=== PATIENT | female | born 1970 | race Caucasian/White ===

== ENCOUNTER 2017-04-06 12:28 | Emergency (ER) | payer BC ==
[~2017-04-06] VITALS: Ht 160 cm; Wt 59.0 kg
[~2017-04-06 12:28] MED LIST: CLONIDINE PO
--- NOTE | 2017-04-06 13:41 | NUR ---
DR MEJIA AT THE BEDSIDE FOR EVAL AND EXAM.
--- NOTE | 2017-04-06 14:11 | NUR ---
Patient discharged to home in stable conditon. Written and verbal after care instructions given by DR trujillo. Patient verbalizes understanding of instructions.
== END 2017-04-06 14:15 | disposition home or self-care (01) ==
LOC: ER 12:30
DX: M54.12 Radiculopathy, cervical region (principal)
CPT/HCPCS: A4663

== ENCOUNTER 2017-06-02 20:09 | Emergency (ER) | payer BC ==
[~2017-06-02] VITALS: Ht 162.6 cm; Wt 56.7 kg
[2017-06-02] MEDS ORDERED: MORPHINE SULFATE 2 MG/1 ML DISP.SYRIN IV ONE (21:32)
[2017-06-02] MEDS ORDERED: ONDANSETRON IV *ER 4 MG/2 ML VIAL IV ONE (21:45)
[2017-06-02] MEDS ORDERED: IV NS 1000 ML 1,000 ML IV ONE (21:45)
[2017-06-02 21:55] LABS: BASOPHILS # (AUTO) 0.2 K/uL (0.0-8.0); BASOPHILS % (AUTO) 1.7 % (0.0-2.0); EOSINOPHILS % (AUTO) 0.3 % (0.0-7.0); HEMATOCRIT 42.5 % (37-47); HEMOGLOBIN 14.3 G/DL (12.0-16.0); LYMPHOCYTES # (AUTO) 1.5 K/UL (0.8-4.8); LYMPHOCYTES % (AUTO) 11.4 % (20.5-51.5); MEAN CORPUSCULAR HEMOGLOBIN 29.8 UUG (27.0-31.0); MEAN CORPUSCULAR HGB CONC 34 g/dL (32.0-37.0); MONOCYTES # (AUTO) 0.8 K/UL (0.1-1.30); MONOCYTES % (AUTO) 6.5 % (0.0-11.0); NEUTROPHILS # (AUTO) 10.4 K/UL (1.8-8.9); NEUTROPHILS % (AUTO) 80.1 % (38.5-71.5); PLATELET COUNT (AUTO) 361 K/UL (150-450); RED BLOOD CELL COUNT(AUTO) 4.78 MIL/UL (4.2-5.4); WHITE BLOOD COUNT (AUTO) 12.9 K/UL (4.0-11.2)
[2017-06-02 21:59] LABS: CREATININE 0.8 mg/dL (0.6-1.3); POTASSIUM 3.9 mmol/L (3.5-5.1)
[2017-06-02 22:05] LABS: BILIRUBIN,TOTAL 0.4 mg/dL (0.2-1.0); TOTAL PROTEIN, SERUM 7.5 g/dL (6.4-8.2)
[2017-06-02] MEDS ORDERED: MORPHINE SULFATE 10 MG/1 ML DISP.SYRIN ONE (22:06)
[2017-06-02] MEDS ORDERED: ONDANSETRON 4 MG/2 ML VIAL ONE (22:06)
--- NOTE | 2017-06-03 01:50 | NUR ---
Patient discharged to home in stable conditon. Written and verbal after care instructions given. Patient verbalizes understanding of instructions.
== END 2017-06-03 01:50 | disposition home or self-care (01) ==
LOC: ER 20:10
DX: G89.18 Other acute postprocedural pain (principal); M54.2 Cervicalgia; D72.829 Elevated white blood cell count, unspecified; M54.5 Low back pain; R13.10 Dysphagia, unspecified; M48.02 Spinal stenosis, cervical region
CPT/HCPCS: 36415; 70360; 72125; 72131; 80053; 82550; 84484; 84703; 85025; 93005; 96361; 96374; 96375; 99285; A4663; J2270; J2405; J7030; 70030-TC

== ENCOUNTER 2017-11-04 18:22 | Inpatient (IN) | payer BC, OTHER ==
[~2017-11-04] VITALS: Ht 162.6 cm; Wt 53.5 kg
[2017-11-04] MEDS ORDERED: AMOX-430 PO (18:36)
[2017-11-04] MEDS ORDERED: BENZ-13 PO (18:36)
[2017-11-04] MEDS ORDERED: OMEP20TA20 PO (18:37)
[2017-11-04] MEDS ORDERED: ALBUTEROL SULFATE 2.5 MG/3 ML NEBU NEB ONE (19:45)
[2017-11-04] MEDS ORDERED: IPRATROPIUM BROMIDE 0.5 MG/2.5 ML NEBU NEB ONE (19:45)
[2017-11-04 19:52] LABS: BASOPHILS # (AUTO) 0.1 K/uL (0.0-8.0); BASOPHILS % (AUTO) 0.9 % (0.0-2.0); EOSINOPHILS # (AUTO) 0.3 K/uL (0.0-0.7); EOSINOPHILS % (AUTO) 2.4 % (0.0-7.0); HEMATOCRIT 44.5 % (31.2-41.9); HEMOGLOBIN 14.9 g/dL (10.9-14.3); LYMPHOCYTES # (AUTO) 2.3 K/uL (20.0-40.0); LYMPHOCYTES % (AUTO) 19.7 % (20.5-51.5); MEAN CORPUSCULAR HEMOGLOBIN 29.9 uug (24.7-32.8); MEAN CORPUSCULAR HGB CONC 33 g/dL (32.3-35.6); MEAN CORPUSCULAR VOLUME 89.5 fL (75.5-95.3); MONOCYTES # (AUTO) 0.9 K/uL (2.0-10.0); MONOCYTES % (AUTO) 7.6 % (0.0-11.0); NEUTROPHILS % (AUTO) 69.4 % (38.5-71.5); PLATELET COUNT (AUTO) 278 K/uL (179-408); RED BLOOD CELL COUNT(AUTO) 4.97 MIL/uL (3.63-4.92); WHITE BLOOD COUNT (AUTO) 11.5 K/uL (3.8-11.8)
[2017-11-04] MEDS ORDERED: ALBUTEROL SULFATE 2.5 MG/3 ML NEBU ONE (20:07)
[2017-11-04] MEDS ORDERED: IPRATROPIUM BROMIDE 0.5 MG/2.5 ML NEBU ONE (20:08)
[2017-11-04 20:18] LABS: CREATININE 0.8 mg/dL (0.6-1.3); POTASSIUM 3.6 mmol/L (3.5-5.1)
[2017-11-04 20:33] LABS: BILIRUBIN,DIRECT 0.1 mg/dL (0.0-0.2); BILIRUBIN,TOTAL 0.4 mg/dL (0.2-1.0); TOTAL PROTEIN, SERUM 7.5 g/dL (6.4-8.2)
[2017-11-04] MEDS ORDERED: OXYCODONE/APAP 5-325 MG TABLET PO PRN (23:00)
[2017-11-04] MEDS ORDERED: ALBUTEROL SULFATE 2.5 MG/3 ML NEBU NEB PRN (23:00)
[2017-11-04] MEDS ORDERED: IPRATROPIUM BROMIDE 0.5 MG/2.5 ML NEBU NEB PRN (23:00)
[2017-11-04] MEDS ORDERED: MAGNESIUM HYDROXIDE 30 ML LIQUID UDC PO PRN (23:00)
[2017-11-04] MEDS ORDERED: ONDANSETRON 4 MG/2 ML VIAL IV PRN (23:00)
[2017-11-04] MEDS ORDERED: CEFTRIAXONE 1 G in IV DEXTROSE 5% 50 ML IV SCH (23:15)
[2017-11-05] VITALS: BP 102/55
[2017-11-05] MEDS ORDERED: CEFTRIAXONE 1 G VIAL ONE (00:28)
[2017-11-05] MEDS ORDERED: AZITHROMYCIN 500 MG VIAL IV ONE (00:28)
[2017-11-05] MEDS: AZITHROMYCIN IV 500 MG in IV DEXTROSE 5% 250 ML IV SCH (02:01)
[2017-11-05 04:00] VITALS: BP 105/61
[2017-11-05 05:45] LABS: BASOPHILS # (AUTO) 0.1 K/uL (0.0-8.0); EOSINOPHILS # (AUTO) 0.2 K/uL (0.0-0.7); EOSINOPHILS % (AUTO) 1.5 % (0.0-7.0); HEMATOCRIT 39.1 % (31.2-41.9); HEMOGLOBIN 13.4 g/dL (10.9-14.3); LYMPHOCYTES # (AUTO) 2.2 K/uL (20.0-40.0); LYMPHOCYTES % (AUTO) 20.9 % (20.5-51.5); MEAN CORPUSCULAR HEMOGLOBIN 30.4 uug (24.7-32.8); MEAN CORPUSCULAR HGB CONC 34 g/dL (32.3-35.6); MEAN CORPUSCULAR VOLUME 88.6 fL (75.5-95.3); MONOCYTES # (AUTO) 0.9 K/uL (2.0-10.0); NEUTROPHILS % (AUTO) 67.6 % (38.5-71.5); PLATELET COUNT (AUTO) 230 K/uL (179-408); RED BLOOD CELL COUNT(AUTO) 4.41 MIL/uL (3.63-4.92); WHITE BLOOD COUNT (AUTO) 10.3 K/uL (3.8-11.8)
[2017-11-05] MEDS: IV NS 1000 ML 1,000 ML IV PRN ×2 (05:45→18:04)
[2017-11-05 05:56] LABS: CREATININE 0.8 mg/dL (0.6-1.3); MAGNESIUM 1.7 mg/dL (1.8-2.4); PHOSPHOROUS 3.7 mg/dL (2.5-4.9); POTASSIUM 3.7 mmol/L (3.5-5.1)
[2017-11-05] MEDS ORDERED: PIPERACILLIN/TAZOBACTAM/D5W 3.375 G in PREMIXED 1 EACH IV SCH (06:00)
[2017-11-05] MEDS: methylPREDNISolone SOD SUCC 40 MG/ML VIAL IV SCH ×3 (06:11→21:04)
[2017-11-05] MEDS: PANTOPRAZOLE SODIUM 40 MG TABLET.DR PO SCH (06:12)
[2017-11-05] MEDS ORDERED: MAG HYDROX/AL HYDROX/SIMETH 30 ML LIQUID UDC PO PRN (11:00)
[2017-11-05 11:26] VITALS: BP 108/57
[2017-11-05] MEDS: ACETAMINOPHEN 325 MG TABLET PO PRN ×2 (12:25→19:51)
[2017-11-05] MEDS ORDERED: BENZONATATE 100 MG CAPSULE PO PRN (12:45)
[2017-11-05] MEDS ORDERED: MAGNESIUM SULFATE/D5W 100 ML IV SCH (12:45)
[2017-11-05 15:41] VITALS: BP 98/55
[2017-11-05] MEDS ORDERED: ALBU8.5H8 IH (18:26)
[2017-11-05 20:22] VITALS: BP 95/47
[2017-11-05] MEDS ORDERED: CEFTRIAXONE 1 G in IV DEXTROSE 5% 50 ML IV SCH (23:30)
[2017-11-06] MEDS: AZITHROMYCIN IV 500 MG in IV DEXTROSE 5% 250 ML IV SCH (00:43)
[2017-11-06 05:37] VITALS: BP 107/59
[2017-11-06] MEDS: methylPREDNISolone SOD SUCC 40 MG/ML VIAL IV SCH (05:56)
[2017-11-06] MEDS: PANTOPRAZOLE SODIUM 40 MG TABLET.DR PO SCH (06:00)
== END 2017-11-06 10:45 | disposition home or self-care (01) | DRG 178 ==
LOC: ER 18:25 → MED 22:56
PROVIDERS: ADMIT Internal Medicine; ATTEND Nurse Practitioner Acute Care
DX: J69.0 Pneumonitis due to inhalation of food and vomit (principal); J44.1 Chronic obstructive pulmonary disease with (acute) exacerbation; F11.20 Opioid dependence, uncomplicated; K21.9 Gastro-esophageal reflux disease without esophagitis; M54.12 Radiculopathy, cervical region; Z80.41 Family history of malignant neoplasm of ovary; G89.29 Other chronic pain; R13.10 Dysphagia, unspecified; Z98.890 Other specified postprocedural states
CPT/HCPCS: 36415; 70030-TC; 71045; 82785; 83605; 83735; 84100; 84703; 85025; 86140; 87040; 92523; 93005; A4663; J0456; J0696; J2920; J3475; J3590; J7030; J7060

== ENCOUNTER 2021-05-27 12:58 | Emergency (ER) | payer BC, OTHER ==
[~2021-05-27] VITALS: Ht 162.6 cm; Wt 56.7 kg
[~2021-05-27 12:58] MED LIST changes: +ALBU8.5H8 IH; +AMOX-430 PO; +BENZ-13 PO; -CLONIDINE PO; +OMEP20TA20 PO
[2021-05-27] MEDS ORDERED: NAPR-1009 PO (14:31)
--- NOTE | 2021-05-27 14:39 | NUR ---
Patient discharged to home in stable condition. Written and verbal after care instructions given. Patient verbalizes understanding of instructions. Stressed follow up or return to ER for worsening s/s.
== END 2021-05-27 14:43 | disposition home or self-care (01) ==
LOC: ER 13:25
DX: G89.18 Other acute postprocedural pain (principal); M79.645 Pain in left finger(s); J44.9 Chronic obstructive pulmonary disease, unspecified; Z98.1 Arthrodesis status
CPT/HCPCS: 73140; A4663

== ENCOUNTER 2023-03-26 23:12 | Emergency (ER) | payer BC, OTHER ==
[~2023-03-26] VITALS: Ht 162.6 cm; Wt 56.7 kg
[~2023-03-26 23:12] MED LIST changes: +NAPR-1009 PO
[2023-03-26] MEDS ORDERED: ONDANSETRON HCL 4 MG TABLET PO ONE (23:45)
[2023-03-26] MEDS ORDERED: ONDANSETRON HCL 4 MG TABLET ONE (23:45)
[2023-03-27] MEDS ORDERED: ONDA4TAB5 PO (00:28)
[2023-03-27 00:32] VITALS: BP 120/70; O2SAT 100
== END 2023-03-27 00:33 | disposition home or self-care (01) ==
LOC: ER 23:19
DX: S01.511A Laceration without foreign body of lip, initial encounter (principal); S60.222A Contusion of left hand, initial encounter; J44.9 Chronic obstructive pulmonary disease, unspecified; Z79.899 Other long term (current) drug therapy; W01.0XXA Fall on same level from slipping, tripping and stumbling without subsequent striking against object, initial encounter; Y93.89 Activity, other specified; Y92.89 Other specified places as the place of occurrence of the external cause; Y99.8 Other external cause status
CPT/HCPCS: 73130; A4663; Q0162

== ENCOUNTER 2023-10-28 13:40 | Emergency (ER) | payer BC, OTHER ==
[~2023-10-28] VITALS: Ht 162.6 cm; Wt 56.7 kg
[~2023-10-28 13:40] MED LIST changes: +ONDA4TAB5 PO
[2023-10-28 13:42] VITALS: O2SAT 100
== END 2023-10-28 16:40 | disposition home or self-care (01) ==
LOC: ER 13:40
DX: N63.20 Unspecified lump in the left breast, unspecified quadrant (principal); J44.9 Chronic obstructive pulmonary disease, unspecified; Z98.890 Other specified postprocedural states; Z79.899 Other long term (current) drug therapy
CPT/HCPCS: 71045; 76641-TC; A4606; A4663